=== PATIENT | male | born 1960 | race Caucasian/White ===

== ENCOUNTER 2022-08-31 08:18 | Day surgery (SDC) | payer OTHER, SELFPAY ==
[2022-08-11 08:52] VITALS: BMI 36.3
[2022-08-31] VITALS (15 sets, daily range): BP systolic 104–149; BP diastolic 62–93; PULSE 57–88; RESP 9–20; TEMP 36.3–36.9; O2SAT 85–98; BMI 35.8
--- NOTE | 2022-08-31 06:00 | DI.RAD.S_ITS ---
PROCEDURE: XR KNEE RT 1TO2V INDICATIONS: prosthesis placement TECHNIQUE: 2 view(s) of the knee acquired. COMPARISON: [facility] [place], CR, XR KNEE STANDING BILATERAL, 12/14/2021, 9:28. [facility] MR, MR KNEE RIGHT WITHOUT CONTRAST, 12/08/2021, 8:26. FINDINGS: Bones: Patient is status post knee joint arthroplasty. Hardware components are in expected positions. Visualized bony structures are intact. Soft tissues: Overlying postoperative changes are noted. IMPRESSION: 1. Expected immediate postoperative appearance of right TKA. Dictated by: Bruno Toro RRA Interpreted: Fazal Dooley MD on 08/31/2022 at 14:48 Transcribed by: JORGE on 08/31/2022 at 14:48 Approved by: Fazal Dooley M.D. on 09/02/2022 at 9:16
[2022-08-31] MEDS: LACTATED RINGERS 1,000 ML 42 ML IV ×2 (09:23→14:26)
[2022-08-31 09:37] LABS: COVID19 -Nasal RAPID Negative (Negative)
--- NOTE | 2022-08-31 09:37 | P.HP_ITS ---
History of Present Illness History of Present Illness Date Patient Seen: 08/31/22 Time Patient Seen: 09:37 Chief complaint: TKA Right Narrative: The patient is a 61-year-old man with right knee pain and arthritis. He has been scheduled for a total knee replacement and this was temporarily delayed due to issues with a sterilize her in the operating room. He has had no substantive changes in his history and physical from his prior history and physical in the chart. This is an interim history and physical with no update necessary. Patient History Medical History Claustrophobia COVID-19 (2019) Osteoarthritis Surgical History Hx of arthroscopy of left knee Hx of arthroscopy of right knee (~2007) Hx of repair of right rotator cuff (~1994) Family & Social History Social History: household members family Prior Living Arrangements House Safety & Behavioral: Feels Safe in Current Yes Environment Been Physically Hurt or No Threatened By a Person Suicidal Ideation Description None Suicide Plan Description No Plan Tobacco & Substance use: Smoking Status Never smoker alcohol intake current alcohol intake frequency holiday/special occasion Substance Use Type does not use Meds Home Medications and Allergies Home Medications Medication Instructions Recorded Confirmed Type naproxen sodium 220 mg capsule 220 mg PO BID PRN Pain 08/11/22 08/31/22 History (Aleve) tamsulosin 0.4 mg capsule (Flomax) 0.4 mg PO DAILY 08/11/22 08/31/22 History Allergies Allergy/AdvReac Type Severity Reaction Status Date / Time bee venom protein (honey bee) Allergy Severe Anaphylaxis Verified 08/31/22 09:27 Penicillins Allergy Intermediate I swell Verified 08/31/22 09:27 up Review of Systems Review of Systems Narrative: No change in current health status. Exam Narrative Exam Narrative: The patient is resting comfortably in bed. No skin lesions overlying the right knee at the site of the chosen incision. No other major changes from prior exam. Assessment & Plan Assessment & Plan narrative: Right knee osteoarthritis. Plan is for right total knee replacement. The patie nt has confirmed his consent. His leg has been marked with my initials. We will proceed with total knee replacement as outlined in his prior history and physical. COVID-19 COVID-19 status: Negative Result date/Date tested (Pos, Neg/Pending): 08/31/22
[2022-08-31] MEDS: ACETAMINOPHEN 325 MG TABLET 975 MG PO (09:50)
[2022-08-31] MEDS: PREGABALIN 75 MG CAPSULE PO (09:51)
[2022-08-31] MEDS: CELECOXIB 200 MG CAPSULE PO (09:51)
[2022-08-31] MEDS: TRANEXAMIC ACID 1,000 MG VIAL 1000 MG INJ ×2 (13:00→13:56)
[2022-08-31] MEDS: CEFAZOLIN VIAL 3 GM in SODIUM CHLORIDE 0.9% 100 ML IV ×2 (13:00→21:22)
--- NOTE | 2022-08-31 13:05 | SUR.OPER ---
Supine on padded OR bed. Pillow under head, arms secured on padded armboards <90 degree abduction. Safety belt across torso. Non-operative leg secured with tape over blanket over lower leg. Operative leg secured in DeMayo positioner. Foam padded brace at thigh of operative leg.
[2022-08-31] MEDS: BUPIVACAINE 0.25% (PF) 60 ML, EPINEPHrine 0.3 MG INJ (13:15)
[2022-08-31] MEDS: BUPIVACAINE LIPOSOME 266 MG/20 ML VIAL INJ (13:15)
[2022-08-31] MEDS: MORPHINE 4 MG/ML INJ INJ (13:15)
--- NOTE | 2022-08-31 14:29 | P.OP_ITS ---
Operative Date/Time/Diagnoses Date of procedure: 08/31/22 Time of procedure: 14:29 Pre-op diagnosis: Right knee osteoarthritis Post-op diagnosis: same Procedure & Clinicians Procedure: Right total knee replacement Same procedure as scheduled: Yes Indications: The patient has had progressively worsening right knee pain with radiographic changes consistent with arthritis. Non-operative management has failed and the patient has requested total knee replacement. The risks, benefits and alternatives to surgery were discussed with the patient prior to proceeding. Risks discussed included, but were not limited to, failure to relieve pain, stiffness, infection, nerve damage, deep venous thrombosis, pulmonary embolism, stroke, coma, heart attack, permanent paralysis and , as well as the potential need for eventual revision of the prosthetic. Surgeon: Den Porras Senior Sharepoint Developer: Kayy Sellers Click Yes if Unassisted: No Anesthesia Type: General, Spinal and Local Operative Notes Findings: Moderately severe lateral compartment osteoarthritis Closure Type: primary Specimen(s): none sent Prosthetic devices, grafts, tissues, transplants, or devices: Implants used in this procedure were manufactured by the [employer] and included the BCS II Journey total knee replacement with a size 9 right Oxinium femoral component, a size 8 right non porous tibial base plate, a 9 mm cross-linked polyethylene tibial insert, and a 38 mm oval Jesika II patella. Applied: implant(s) Estimated Blood Loss (mL): 25 Blood products transfused: none Tourniquet time (min): 51 Procedure in detail: The patient was seen in the pre-operative area, where the patient identified the right knee as the operative site and this was marked with my initials. The patient received pre-operative antibiotics, and was taken to the operating room and placed on the operative table in the supine position. After satisfactory anesthesia, a seating captain out was performed. The right leg was encircled with a tourniquet about the proximal thigh, and the leg was prepared from the toes to the tourniquet with ChloroPrep in the usual fashion and draped through sterile drapes. The leg was elevated and exsanguinated with Eschmark bandage and the tourniquet inflated to 250 mmHg pressure. The knee was approached through an approximately 18 cm incision centered over the patella and carried into the knee through a medial parapatellar arthrotomy. The anterior osteophytes and soft tissues were removed. The rotational landmarks of [place]'s line and the transepicondylar axis were marked on the femur with electrocautery, and intramedullary guide holes for the femur and tibia were created. The distal femoral cut was made in 6 degrees of valgus using the intramedullary guide at the primary cut setting. The femur was then sized and it became apparent it was a size 9 which requires 2 mm additional cut so this was performed. The proximal tibial cut was then made using the intramedullary guide, taking 7 mm of bone off the less involved medial side. The extension gap was checked and the rotation of the femoral component confirmed with the gap balancing system. The anterior, posterior and chamfer cuts were then made. The posterior osteophytes and soft tissues were then removed. The posterior capsule was injected with part of a mixture of 60 ml 0.25% Marcaine mixed with 20 ml Exparel and 4 mg of morphine for post-operative pain control. The remainder of this mixture was injected into the capsule and subcutaneous tissues during gerard ent curing. The tibia was prepared with the rotation set by an extra medullary guide. Trial tibial and femoral components were then placed and the intercondylar notch cut through the femoral trial. Range of motion was 0-135 degrees, with good stability throughout the range. The patella was then cut to accommodate the patellar prosthetic. There was no need for a lateral release. The trials were then removed, and the femoral hole plugged with a bone plug. The bone was prepared with pulsatile lavage, and dried with a sponge. Cement was applied and the final prosthetics placed. Excess cement was removed during and after cement curing. After confirming there was no extruded cement posteriorly, the final tibial insert was placed. The knee was copiously irrigated and the tourniquet deflated. Hemostasis was obtained. The capsule was closed with interrupted # 2 polyester suture. The subcutaneous layer was closed with 3-0 Vicryl, and the skin with a running 3-0 V-Lock suture and Dermabond. An Aquacel Ag dressing was applied and the patient was taken to recovery having tolerated the procedure well. The services of a skilled rehabilitation assistant were required during this procedure to provide positioning, exposure and retraction to protect vital structures. Without the services of Ms. Sellers, the procedure could not be performed in a safe, expedient manner. Complications: none Post-operative Condition: stable Disposition: PACU Plan for aftercare: The patient will be maintained on a standard total knee replacement protocol with weight bearing as tolerated. The patient will receive aspirin and sequential compression devices for DVT prophylaxis. The patient will be discharged home when safe for the home environment.
[2022-08-31] MEDS: HYDROMORPHONE 2 MG INJ IV ×4 (14:38→15:05)
[2022-08-31] MEDS: hydrOXYzine 50 MG/ML INJ IM (14:51)
[2022-08-31] MEDS: LORazepam 2 MG/ML INJ 0.5 MG IV (14:53)
[2022-08-31] MEDS: ONDANSETRON 4 MG/2 ML INJ IV (15:07)
--- NOTE | 2022-08-31 15:35 | SUR.PHASEI ---
Report called to
[2022-08-31] MEDS: OXYCODONE/ACETAMINOPHEN 5/325 TABLET 2 TAB PO (15:42)
[2022-08-31] MEDS: IBUPROFEN 600 MG TABLET PO ×2 (16:10→21:23)
[2022-08-31] MEDS: ACETAMINOPHEN 325 MG TABLET 650 MG PO ×2 (16:10→21:23)
[2022-08-31] MEDS: LACTATED RINGERS 1,000 ML 100 ML IV (16:11)
--- NOTE | 2022-08-31 16:15 | SUR.PHASEI ---
Patient transferred to the floor with his belongings bag. Report given to Elida. VS stable. Right knee dressing CDI. IV patent.
[2022-08-31] MEDS: HYDROMORPHONE 0.5 MG INJ IV ×3 (17:05→23:30)
[2022-08-31] MEDS: OXYCODONE IR 10 MG TABLET PO (18:32)
[2022-08-31] MEDS: ASPIRIN EC 81 MG TABLET PO (20:16)
[2022-08-31] MEDS: DOCUSATE 100 MG CAPSULE PO (20:16)
[2022-09-01] MEDS: OXYCODONE IR 10 MG TABLET PO ×4 (03:43→12:37)
[2022-09-01] MEDS: IBUPROFEN 600 MG TABLET PO ×2 (03:43→09:21)
[2022-09-01] MEDS: ACETAMINOPHEN 325 MG TABLET 650 MG PO (03:44)
[2022-09-01 04:05] VITALS: BP 146/72; PULSE 60; RESP 17; TEMP 36.9; O2SAT 97
[2022-09-01] MEDS: CEFAZOLIN VIAL 3 GM in SODIUM CHLORIDE 0.9% 100 ML IV (04:55)
[2022-09-01 05:00] LABS: Hemoglobin 13.9 g/dL (13.5-17.5)
--- NOTE | 2022-09-01 07:52 | P.DS_ITS ---
History of Present Illness History of Present Illness Date Patient Seen: 09/01/22 Time Patient Seen: 07:53 Chief complaint: TKA Right Narrative: Patient is complaining of moderate right knee pain this morning. He is not gotten up with physical therapy. Generally he is feeling well would like to be discharged home today. Discharge Providers Provider Discharge Date: 09/01/22 Consults: 08/31/22 15:49 Consult to Discharge Planning Routine Comment: Consult to Physical Therapy Evaluate & Treat Comment: Physician Instructions: postop TKA protocol Discharge provider: Kayy Sellers PA-C Summary Hospital Course Discharge Diagnosis: Right total knee osteoarthritis Hospital Course: Operative Date/Time/Diagnoses Date of procedure: 08/31/22 Time of procedure: 14:29 Procedure & Clinicians Procedure: Right total knee replacement Same procedure as scheduled: Yes Indications: The patient has had progressively worsening right knee pain with radiographic changes consistent with arthritis. Non-operative management has failed and the patient has requested total knee replacement. The risks, benefits and alternatives to surgery were discussed with the patient prior to proceeding. Risks discussed included, but were not limited to, failure to relieve pain, stiffness, infection, nerve damage, deep venous thrombosis, pulmonary embolism, stroke, coma, heart attack, permanent paralysis and , as well as the potential need for eventual revision of the prosthetic. Surgeon: Den Porras Furnace Combustion Tester: Kayy Sellers Click Yes if Unassisted: No Anesthesia Type: General, Spinal and Local Operative Notes Findings: Moderately severe lateral compartment osteoarthritis Closure Type: primary Specimen(s): none sent Prosthetic devices, grafts, tissues, transplants, or devices: Implants used in this procedure were manufactured by the [employer] [facility] and included the BCS II Journey total knee replacement with a size 9 right Oxinium femoral component, a size 8 right non porous tibial base plate, a 9 mm cross-linked polyethylene tibial insert, and a 38 mm oval Jesika II patella. Applied: implant(s) Estimated Blood Loss (mL): 25 Blood products transfused: none Tourniquet time (min): 51 Status at Discharge Cognitive/behavioral status at discharge: at baseline, oriented Functional status at discharge: uses cane/walker Overall status at discharge: patient is progressing back to baseline Exam Vital Signs (past 8 hours): - 09/01/22 04:05 Temperature 98.5 F Pulse Rate 60 Respiratory Rate 17 Blood Pressure 146/72 H Pulse Oximetry 97 Oxygen Flow Rate 0 Oxygen Delivery Method Nasal Cannula Oxygen Flow Rate 0 Narrative Exam Narrative: Pleasant 61-year-old male, resting comfortably in bed, no acute distress. Right knee dressing is clean, dry, intact. No surrounding erythema, induration, or shanon pus. Bilateral lower extremity: Motor functions are grossly intact, sensation is grossly intact to light touch, calves are soft and nontender to palpation. Objective Labs 09/01/22 04:32 Labs: Laboratory Results - last 24 hr 08/31/22 09/01/22 09:22 04:32 Hgb 13.9 Hct 41.0 SARS-CoV-2 (PCR) Negative PFSH Medical History Claustrophobia COVID-19 (2019) Osteoarthritis Surgical History Hx of arthroscopy of left knee Hx of arthroscopy of right knee (~2007) Hx of repair of right rotator cuff (~1994) Social History household members: family Smoking Status: Never smoker alcohol intake: current Discharge Assessment & Plan Assessment and Plan Assessment: -stable status post right total knee arthroplasty Plan of Treatment: -mobilize with PT. Weightbearing as tolerated with front wheel walker cane. -continue with multimodal pain management -aspirin 81 mg b.i.d. x6 weeks for DVT prophylaxis -DC home today once cleared by PT Discharge Plan Discharge Plan Patient Disposition: Home Discharge orders & Medications Discharge Orders: Discharge (Order); Ordered 09/01/22 Ordered By: Kayy Sellers Prescriptions: New acetaminophen 325 mg Tablet 650 mg PO Q6H MDD Max 3000 mg per day PRN (Reason: fever or pain) Qty: 90 0RF aspirin 81 mg Tablet,Delayed Release (Dr/Ec) 81 mg PO BID 42 Days Qty: 84 0RF Rx Instructions: Prevent blood clots docusate sodium 100 mg Capsule 100 mg PO BID PRN (Reason: constipation) Qty: 30 0RF ibuprofen 600 mg Tablet 600 mg PO Q6H MDD Max 2400 mg per day PRN (Reason: Pain/inflammation) Qty: 90 0RF oxycodone 10 mg Tablet 10 mg PO Q3H PRN (Reason: Pain, Severe (7-10)) Qty: 42 0RF Continued tamsulosin [Flomax] 0.4 mg Capsule 0.4 mg PO DAILY Discontinued naproxen sodium [Aleve] 220 mg Capsule 220 mg PO BID PRN (Reason: Pain) Follow up/Referrals: Den Porras MD [Physician] - As previously scheduled (10-14 days for postoperative visit) Diet/Activity/Treatments Diet: Diet as Tolerated Other treatments: Dressing/Wound care: -Remove the Zac wrap 48 hours after surgery. -Keep Aquacell dressing in place until postoperative follow-up office visit. -Okay to shower. Keep wound out of direct water stream. No soaking or submerging until all the scabs fall off (approximately 4-6 weeks). -No lotions, ointments, or scar creams directly to the incision until the wound is healed (4-6 weeks). No soaking or submerging until all the scabs are gone (usually 4-6 weeks). -Bruising is relatively normal and can show up 1-10 days after surgery, and can travel down to your foot or ankle. This is expected after surgery, but can be painful. -Please call the office if dressing becomes wet, soiled, or saturated. Activities: -Walk frequently: approximately 5-10 minutes every hour. -Weight-bearing as tolerated. Use front wheeled walker, and progress to cane when safe. -Continue with home exercises as directed by your physical therapist. -Elevate ?toes above the nose if you have significant swelling in your lower leg. (A wedge pillow is easiest.) -Ice your incision as needed for pain/inflammation/swelling. Protect your skin with a folded pillowcase. -Incentive Spirometer (breathing device from hospital): 5-10xs every hour while awake for the first 1-2 weeks. Follow-up: -Follow-up with your surgeon or PA in the office in 10-14 days after surgery. -Follow-up with your surgeon 6 weeks postoperatively. Call the office if you have chest pain, shortness of breath, significant swelling that will not resolve with elevating, fever over 101?, significantly worsening pain, or are concerned you might need to go to the Emergency Room. [facility]: [phone] Skin/Wound/Dressing Care Report to your healthcare provider any signs of infection, such as:: chills, fever, night sweats, unusual drainage and unusual redness Visit Report/Discharge Packet Instructions: DI for Knee Replacement Stand Alone Forms: Patient Portal/API, Surgery Discharge Discharge Data Attending Provider: Den Porras Quality VTE Deep Vein Thrombosis/Pulmonary Embolism Present on Admission: No
[2022-09-01] MEDS: TAMSULOSIN 0.4 MG CAPSULE PO (08:24)
[2022-09-01] MEDS: ASPIRIN EC 81 MG TABLET PO (08:25)
[2022-09-01] MEDS: DOCUSATE 100 MG CAPSULE PO (08:25)
[2022-09-01 09:04] VITALS: BP 127/70; PULSE 77; RESP 19; TEMP 36.4; O2SAT 98
--- NOTE | 2022-09-01 12:23 | PT.IPTN ---
Current Diagnoses Unilateral primary osteoarthritis, right knee (08/31/22) Other tear of medial meniscus, current injury, right knee, initial encounter (08/31/22) Complex tear of lateral meniscus, current injury, right knee, initial encounter (08/31/22) Strain of unspecified muscle(s) and tendon(s) at lower leg level, right leg, initial encounter (08/31/22) Surgery Performed Operation Date: 08/31/22 10:00 Actual Procedures p Total Knee Arthroplasty(Right) - Den Porras MD Physical Therapy Treatment Note M2 PT-IP Current Condition Start: 09/01/22 11:06 Freq: NEEDED Status: Discharge Protocol: Document 09/01/22 11:06 TH (Rec: 09/01/22 11:33 TH [id number]) Physical Therapy Current Condition Current Condition Evaluation Date 09/01/22 Treatment Diagnosis S/p R TKA M3 PT-IP Subjective Start: 09/01/22 11:06 Freq: NEEDED Status: Discharge Protocol: Document 09/01/22 12:38 TS (Rec: 09/01/22 12:51 TS [id number]) Subjective Physical Therapy Visit Type Type Treatment Note Visit Start Time 12:23 Visit Stop Time 12:36 Total Visit Minutes 13 Notes Pt up in bed, dressed and hoping for d/c soon, son in room. M4 PT-IP Mobility and Gait Start: 09/01/22 11:06 Freq: NEEDED Status: Discharge Protocol: Document 09/01/22 12:38 TS (Rec: 09/01/22 12:51 TS [id number]) PT-Bed Mobility Assessment Scooting Scooting to Edge of Bed Independent PT-Transfer Assessment Sit to and From Stand Sit to and from Stand Standby Assistance Equipment Transfer Assistive Device Front Wheeled Walker Comments Mobility Comments Pt found up in bed, agreeable to PT session. Pt performed sit to stand with BUE support on bed, cues for weight forward. He ambulated ~5' to sink with step to and antalgic gait. Pt performed stairs x3 with LUE support on counter and RUE on FWW, provided cues for ascending and descending sequencing. Gait Assessment Gait Gait Assistance Required: Standby Assistance Assistive Devices Assistive Device Gait Belt,Front Wheeled Walker Gait Deviations General Gait Pattern Antalgic,Step-to Gait Factors Limiting Gait Function Factors Limiting Gait Function Pain Comments Gait Comments Ambulated ~5' to sink counter with step to and antalgic gait , leans heavily on FWW. Stair Climbing Assessment Evaluation Level of Assist On Stairs Contact Guard Assistance Devices Stair Climbing Assistive Devices Front Wheel Walker Technique/Endurance Stair Climbing Direction Ascend and Descend Stair Climbing Technique Step Over Step Number of Steps Climbed 3 Comments Stair Climbing Comments Pt performed stairs x3 CGA, provided cues for step sequencing, LUE counter supprt and RUE on FWW. PT-Balance Assessment Sitting Balance and Reactions Static Sitting Balance Ability Normal Dynamic Sitting Balance Ability Normal Standing Balance and Reactions Static Standing Balance Ability Normal Dynamic Standing Balance Ability Normal M5 PT-IP Objective Assessments Start: 09/01/22 11:06 Freq: NEEDED Status: Discharge Protocol: Document 09/01/22 11:06 TH (Rec: 09/01/22 11:33 TH [id number]) Orientation Orientation/Cognition Level of Alertness Alert Orientation Name,Place,Situation Gross Range of Motion Upper Extremity ROM Assessment Within Functional Limits Lower Extremity ROM Assessment Right Impaired Impairments KNee flex: 30 degrees Ext: -15 Strength Upper Extremity Strength Assessment Within Functional Limits Lower Extremity Strength Assessment Right Impaired M6 PT-IP Treatment Start: 09/01/22 11:06 Freq: NEEDED Status: Discharge Protocol: Document 09/01/22 11:06 TH (Rec: 09/01/22 11:33 TH [id number]) Physical Therapy Treatment Exercises Exercises Ankle Pumps,Heel Slides Other Treatments Other Treatment Performed limiting poillow behind knee when elevating M7 PT-IP Assessment and Plan Start: 09/01/22 11:06 Freq: NEEDED Status: Discharge Protocol: Document 09/01/22 12:38 TS (Rec: 09/01/22 12:51 TS [id number]) PT Summary Assessment and Plan Potential Rehabilitation Potential Excellent Status of Condition at Evaluation Stable Summary Impairments Pain,ROM,Strength Assessment Summary Pt performed sit to stand SBA, ambulated ~5' to counter SBA, stairs x3 CGA. Pt has son and handrail assist at home for stairs. [employer] FWW dispensed to him for take home. PT recommends home with assist from family when needed. Goals Bed Mobility Goal Independent Transfer Goal Independent Gait Goal Independent Gait Distance 50 feet Days to Meet Goals 5 Frequency of Treatment Frequency Of Treatment Twice a Day Treatment Plan Physical Therapy Treatment Plan Bed Mobility Training,Transfer Training,Gait Training, Therapeutic Exercise,Balance Retraining,Post Op Education Other Recommendations and Next Treatment Stair training Focus Recommendations To Nursing Amount of Assist Needed 1 Person Assist Discharge Recommendations PT Discharge Recommendations Home with Assistance Equipment Needed for Home Before Raised toilet seat with arm Discharge rails, Aguilar walker Transportation Needs at Discharge Private Vehicle
--- NOTE | 2022-09-01 15:07 | CM.DANOTE ---
Discharge Planning/Care Management CM Discharge Assessment Start: 09/01/22 15:02 Freq: Status: Active Protocol: Document 09/01/22 15:02 DAMARI (Rec: 09/01/22 15:07 DAMARI [id number]) Discharge Planning Assessment Assigned Technical Maintenance Technician YESI Cruz DPOA/Assigned Designee Name shira Tripp Contact Information [phone], son Advance Directives? No History Provided By Patient,Medical Record Prior Living Arrangements House Household Members family Type of transporation used prior to Drives own vehicle admit Independent with ADL's Yes Is patient alert and oriented? Yes Patient/Family Preference OP PT Therapy Barriers to Discharge No Comment Patient is a 61 yo male, resident of [place], POD1 from Total Knee Arthroplasty( Right) - Den Porras MD Patient is indp at baseline and had planned to discharge home w/assist from son with outpatient PT. Patient has been cleared by therapies for this plan No CM needs identified Discharge Plan Home Referrals Initiated None needed
== END 2022-09-01 12:45 | disposition home or self-care (01) ==
LOC: OR 08:21 → AC 08:22
PROVIDERS: Referring Provider Orthopaedic Surgery; Visit Provider Orthopaedic Surgery
PROC: 0SRC0JZ Replacement of Right Knee Joint with Synthetic Substitute, Open Approach (ICD-10-PCS; CPT 27447; principal; 2022-08-31 10:00)
DX: M17.11 Unilateral primary osteoarthritis, right knee (principal); S86.911A Strain of unspecified muscle(s) and tendon(s) at lower leg level, right leg, initial encounter; S83.241A Other tear of medial meniscus, current injury, right knee, initial encounter; S83.271A Complex tear of lateral meniscus, current injury, right knee, initial encounter; Z20.822 Contact with and (suspected) exposure to COVID-19
CPT/HCPCS: 27447; 36415; 73560; 82962; 85014; 85018; 87635; 97161; 97530; C1776; C9803; C9290; J0171; J0690; J1170; J2060; J2250; J2270; J2405; J2704; J3010; J3410